=== PATIENT | female | born 1945 | race Caucasian/White ===

== ENCOUNTER → 2024-07-06 06:14 | Day surgery (SDC) | payer MEDICARE, SELFPAY ==
[2024-07-06 08:45] LABS: Glucose - Point of Care 129 mg/dl (70-99)
== END ==
LOC: GI 06:14
PROVIDERS: ATTENDING PHYSICIAN Surgery
DX: Z12.11 Encounter for screening for malignant neoplasm of colon (principal); D12.3 Benign neoplasm of transverse colon; K63.5 Polyp of colon; K57.30 Diverticulosis of large intestine without perforation or abscess without bleeding; Z86.010 Personal history of colon polyps
CPT/HCPCS: 45380; 88305; 82962

== ENCOUNTER → 2024-11-03 13:41 | Outpatient (REF) | payer MEDICARE, SELFPAY | LOC: WDC 13:41 | PROVIDERS: ATTENDING PHYSICIAN Family Medicine | DX: Z12.31 Encounter for screening mammogram for malignant neoplasm of breast (principal) | CPT/HCPCS: 77063; 77067 ==

== ENCOUNTER → 2025-03-02 15:44 | Outpatient (REF) | payer MEDICARE, SELFPAY | LOC: RAD 15:44 | PROVIDERS: ATTENDING PHYSICIAN Family Medicine | DX: I65.21 Occlusion and stenosis of right carotid artery (principal) | CPT/HCPCS: 93880 ==

== ENCOUNTER → 2025-03-23 10:45 | Outpatient (REF) | payer MEDICARE, SELFPAY | LOC: RAD 10:45 | PROVIDERS: ATTENDING PHYSICIAN Family Medicine | DX: M85.80 Other specified disorders of bone density and structure, unspecified site (principal); Z78.0 Asymptomatic menopausal state; M85.811 Other specified disorders of bone density and structure, right shoulder | CPT/HCPCS: 77080 ==

== ENCOUNTER → 2025-07-13 10:07 | Outpatient (REF) | payer MEDICARE, SELFPAY | LOC: WDC 10:07 | PROVIDERS: ATTENDING PHYSICIAN Family Medicine | DX: R92.333 Mammographic heterogeneous density, bilateral breasts (principal) | CPT/HCPCS: 76641 ==